=== PATIENT | male | born 1985 | race Caucasian/White ===

== ENCOUNTER 2017-07-26 18:47 | Emergency (ER) | payer MEDICAID, OTHER ==
[~2017-07-26] VITALS: Ht 175.3 cm; Wt 61.1 kg
[2017-07-26 18:49] VITALS: BP 146/92
== END 2017-07-26 19:54 | disposition home or self-care (01) ==
LOC: ED 19:30
DX: H65.01 Acute serous otitis media, right ear (principal)
CPT/HCPCS: 99283

== ENCOUNTER 2019-08-02 17:16 | Emergency (ER) | payer SELFPAY ==
[~2019-08-02] VITALS: Ht 177.8 cm; Wt 60.2 kg
[2019-08-02 17:45] VITALS: BP 131/83
[2019-08-02] MEDS ORDERED: LIDOCAINE-MPF 1%, 5ML ONE (17:50)
[2019-08-02] MEDS ORDERED: LIDOCAINE-MPF 1%, 5ML INFIL ONE (18:00)
--- NOTE | 2019-08-02 18:37 | NUR ---
Patient given discharge instructions and they have confirmed that they understand the instructions. Patient ambulatory with steady gait.
== END 2019-08-02 18:39 | disposition home or self-care (01) ==
LOC: ED 18:30
DX: L03.113 Cellulitis of right upper limb (principal); F17.200 Nicotine dependence, unspecified, uncomplicated
CPT/HCPCS: 10060; 99283